=== PATIENT | female | born 1965 | race Caucasian/White ===

== ENCOUNTER → 2016-09-13 | Outpatient (CLI) | payer BC ==
[~2016-09-13] MED LIST: AMOXICILLIN500 MG PO; CIPROFLOXACIN500 MG PO; ETODOLAC200 MG PO; MOBIC15 MG PO; MOTRIN800 MG PO; NKHM; PHENERGAN25 M1 PO; TRAMADOL HCL50 MG PO; VICODIN ES 7501 TAB PO
== END | disposition home or self-care (01) ==
LOC: RAD 10:49
DX: M54.5 Low back pain (principal)

== ENCOUNTER → 2017-08-01 | Outpatient (CLI) | payer BC | END | disposition home or self-care (01) | LOC: RAD 10:50 | DX: M25.461 Effusion, right knee (principal); M17.11 Unilateral primary osteoarthritis, right knee ==

== ENCOUNTER → 2017-08-06 | Outpatient (CLI) | payer BC | END | disposition home or self-care (01) | LOC: US 13:26 | DX: M79.661 Pain in right lower leg (principal); M79.89 Other specified soft tissue disorders ==

== ENCOUNTER 2018-03-20 12:04 | Emergency (ER) | payer BC ==
[~2018-03-20] VITALS: Ht 160 cm; Wt 85.7 kg
[2018-03-20 12:30] LABS: BASO % 0.6 % (0.0-1.0); EOS # 0.2 10*3/uL (0.0-0.4); EOS % 4.9 % (1.0-4.0); HEMOGLOBIN 15.5 g/dl (12.0-16.0); LYMPH % 20.1 % (27.0-41.0); MEAN CELL VOLUME 89.8 fl (81.0-99.0); MEAN CORPUSCULAR HGB 31.6 pg (27.0-31.0); MEAN CORPUSCULAR HGB CONC 35.2 g/dl (33.0-37.0); MEAN PLATELET VOLUME 9.3 fl (9.6-12.3); MONO # 0.5 10*3/uL (0.1-1.0); MONO % 9.6 % (3.0-9.0); NEUT # 3.2 10*3/uL (2.3-7.9); NEUT % 64.6 % (47.0-73.0); PLATELET COUNT AUTOMATED 202 10*3/uL (130-400); RED CELL DISTRI WIDTH 11.4 % (0-14.5); WHITE BLOOD COUNT 4.9 10*3/uL (4.8-10.8)
[2018-03-20 12:46] LABS: ALBUMIN 3.7 gm/dl (3.1-4.5); ALKALINE PHOSPHATASE 94 U/L (45-117); BUN 14 mg/dl (7-24); CHLORIDE 107 mmol/L (98-107); CREATININE 0.74 mg/dL (0.55-1.02); POTASSIUM 3.7 mmol/L (3.5-5.1); SGOT/AST 23 IU/L (3-35); SGPT/ALT 27 U/L (12-78); SODIUM 138 mmol/L (136-145); TOTAL PROTEIN 7.3 gm/dL (6.4-8.2)
[2018-03-20] MEDS ORDERED: SEPTDS PO (13:40)
== END 2018-03-20 13:45 | disposition home or self-care (01) ==
LOC: ED 12:04
PROVIDERS: Nurse Practitioner Family
DX: S90.112A Contusion of left great toe without damage to nail, initial encounter (principal); S90.122A Contusion of left lesser toe(s) without damage to nail, initial encounter; L03.032 Cellulitis of left toe; Z88.0 Allergy status to penicillin; Z88.1 Allergy status to other antibiotic agents; W54.1XXA Struck by dog, initial encounter; Y93.89 Activity, other specified; Y92.89 Other specified places as the place of occurrence of the external cause; Y99.8 Other external cause status

== ENCOUNTER → 2018-10-13 | Outpatient (CLI) | payer BC ==
[~2018-10-13] MED LIST changes: +SEPTDS PO
== END | disposition home or self-care (01) ==
LOC: RAD 12:07
DX: R07.81 Pleurodynia (principal); W19.XXXA Unspecified fall, initial encounter

== ENCOUNTER 2020-12-14 18:54 | Emergency (ER) | payer BC ==
[~2020-12-14] VITALS: Wt 82.1 kg
[2020-12-14 19:27] LABS: BILIRUBIN Negative (Negative); BLOOD 3+ (Negative); CLARITY Turbid (Clear); COLOR Yellow (Yellow); GLUCOSE Negative (Negative); KETONE Negative (Negative); LEUKO ESTERASE Trace (Negative); NITRITE Negative (Negative)
[2020-12-14 19:35] LABS: BASO % 0.3 % (0.0-1.0); EOS % 0.7 % (1.0-4.0); HEMATOCRIT 36.6 % (37.0-47.0); LYMPH # 0.4 10*3/uL (1.3-4.4); LYMPH % 6.4 % (27.0-41.0); MEAN CELL VOLUME 85.3 fl (81.0-99.0); MEAN CORPUSCULAR HGB CONC 31.7 g/dl (33.0-37.0); MEAN PLATELET VOLUME 8.7 fl (9.6-12.3); MONO # 0.4 10*3/uL (0.1-1.0); MONO % 6.7 % (3.0-9.0); NEUT # 5.2 10*3/uL (2.3-7.9); NEUT % 85.2 % (47.0-73.0); PLATELET COUNT AUTOMATED 132 10*3/uL (130-400); RED BLOOD COUNT 4.29 10*6/uL (4.10-5.10); RED CELL DISTRI WIDTH 14.5 % (0-14.5); WHITE BLOOD COUNT 6.1 10*3/uL (4.8-10.8)
[2020-12-14 19:44] LABS: BACTERIA TRACE; EPITHELIAL CELLS 0-2; RBC 51-100 rbc/hpf (0-2)
[2020-12-14 19:52] LABS: ALBUMIN 3.1 gm/dl (3.1-4.5); ALKALINE PHOSPHATASE 135 U/L (45-117); BUN 16 mg/dl (7-24); CHLORIDE 108 mmol/L (98-107); CREATININE 0.84 mg/dL (0.55-1.02); LIPASE 61 U/L (73-393); POTASSIUM 3.4 mmol/L (3.5-5.1); SGOT/AST 29 IU/L (3-35); SGPT/ALT 22 U/L (12-78); SODIUM 139 mmol/L (136-145); TOTAL PROTEIN 7.7 gm/dL (6.4-8.2)
[2020-12-14] MEDS ORDERED: HYDROCODONE-AC1 EAC1 PO (22:10)
== END 2020-12-14 22:30 | disposition home or self-care (01) ==
LOC: ED 18:54
PROVIDERS: Emergency Medicine
DX: N13.2 Hydronephrosis with renal and ureteral calculous obstruction (principal); R10.31 Right lower quadrant pain; Z88.0 Allergy status to penicillin; Z88.2 Allergy status to sulfonamides; Z88.8 Allergy status to other drugs, medicaments and biological substances; Z79.899 Other long term (current) drug therapy